=== PATIENT | female | born 1955 | race Caucasian/White ===

== ENCOUNTER 2016-11-08 13:51 | Outpatient (CLI) | payer BC ==
[~2016-11-08 13:51] MED LIST: METO50TA7 PO
== END 2016-11-08 20:13 | disposition home or self-care (01) ==
LOC: SRD 13:51
PROVIDERS: ATTEND Family Medicine
DX: S79.912A Unspecified injury of left hip, initial encounter (principal); X58.XXXA Exposure to other specified factors, initial encounter; Y93.89 Activity, other specified; Y92.89 Other specified places as the place of occurrence of the external cause; Y99.8 Other external cause status
CPT/HCPCS: 73502

== ENCOUNTER 2016-11-19 14:14 | Outpatient (CLI) | payer BC | END 2016-11-19 19:23 | disposition home or self-care (01) | LOC: SUS 14:14 | PROVIDERS: ATTEND Family Medicine | DX: M79.662 Pain in left lower leg (principal); Z86.718 Personal history of other venous thrombosis and embolism | CPT/HCPCS: 93971 ==

== ENCOUNTER 2017-04-14 17:04 | Emergency (ER) | payer BC, OTHER ==
[~2017-04-14] VITALS: Ht 165.1 cm; Wt 78.5 kg
[2017-04-14 17:16] VITALS: BP_SYST 135
--- NOTE | 2017-04-14 17:19 | NUR ---
Patient triaged and placed in waiting room. VSS and patient appears in no acute distress at this time. Accompanied by , awaiting available bed, and MD notified of need for MSE.
--- NOTE | 2017-04-14 17:25 | NUR ---
Pt to bed 6 via wheelchair
--- NOTE | 2017-04-14 17:30 | NUR ---
ER at bedside examining patient.
--- NOTE | 2017-04-14 17:30 | NUR ---
patient presented to ER sent by dr. mukherjee for further evaluation.cc of multiple fx of right shoulder.right eye/face ,shoulder and upper arm bruises.sling immobilizer in placed. stated pain sclae 10/10 scale. MD aware. not s/s of distress. informed about the POC.
--- NOTE | 2017-04-14 17:40 | NUR ---
xray going at bedside.
[2017-04-14] MEDS ORDERED: MORPHINE 4 MG/ML INJ. SYRINGE IM ONE (17:45)
[2017-04-14] MEDS ORDERED: MORPHINE SULFATE 10 MG/ML VIAL ONE (17:45)
[2017-04-14] MEDS ORDERED: ONDANSETRON 4 MG ODT TAB PO ONE (17:45)
--- NOTE | 2017-04-14 18:05 | NUR ---
Patient transported [facility], accompanied by graduating machine operator.
[2017-04-14 19:09] VITALS: BP_SYST 130
--- NOTE | 2017-04-14 19:09 | NUR ---
Patient given written and verbal discharge instructions and verbalizes understanding. ER MD discussed with patient the results and treatment provided. Patient in stable condition. ID arm band removed. Rx of motrin,colace,zofran given. Patient educated on pain management and to follow up with PMD. Pain Scale 5. Opportunity for questions provided and answered.
== END 2017-04-14 19:09 | disposition home or self-care (01) ==
LOC: SED 17:04
DX: S32.010A Wedge compression fracture of first lumbar vertebra, initial encounter for closed fracture (principal); S32.020A Wedge compression fracture of second lumbar vertebra, initial encounter for closed fracture; S42.294A Other nondisplaced fracture of upper end of right humerus, initial encounter for closed fracture; S00.83XA Contusion of other part of head, initial encounter; Z88.0 Allergy status to penicillin; Z88.5 Allergy status to narcotic agent; Z88.6 Allergy status to analgesic agent; W19.XXXA Unspecified fall, initial encounter; Y93.89 Activity, other specified; Y92.89 Other specified places as the place of occurrence of the external cause; Y99.8 Other external cause status
CPT/HCPCS: 71010; 72131; 73030; 73070; 96372; 99284; J2270; Q0162

== ENCOUNTER 2018-01-18 10:48 | Outpatient (CLI) | payer OTHER | END 2018-01-18 19:14 | disposition home or self-care (01) | LOC: SRD 10:48 | PROVIDERS: ATTEND Family Medicine | DX: R05 Cough (principal); R06.2 Wheezing; M81.0 Age-related osteoporosis without current pathological fracture; M47.894 Other spondylosis, thoracic region | CPT/HCPCS: 71046-TC ==